=== PATIENT | female | born 1955 | race American Indian/Alaskan Native ===

== ENCOUNTER 2017-06-15 18:06 | Observation (INO) | payer MEDICARE, OTHER ==
[2017-06-15 18:06] VITALS: BMI 42.5
[2017-06-15 18:38] LABS: BASO # 0.02 K/mm3 (0.0-2.0); BASO % 0.2 % (0.0-3.0); EOS # 0.3 (0.0-0.7); EOS % 2.9 % (1.5-5.0); GRAN # 4.62 (1.4-6.5); HEMATOCRIT 37.4 % (36.0-48.0); LYMPH # 4.5 (1.2-3.4); LYMPH % 44.7 % (22.0-35.0); MEAN CELL VOLUME 84.6 fl (80.0-105.0); MEAN CORPUSCULAR HEMOGLOBIN 27.4 pg (25.0-35.0); MEAN CORPUSCULAR HGB CONC 32.4 g/dl (31.0-37.0); MEAN PLATELET VOLUME 11.9 fl (7.0-11.0); MONO # 0.6 (0.1-0.6); MONO % 6.2 % (1.0-6.0); RED CELL DISTRIBUTION WIDTH 15.8 % (11.5-14.5)
--- NOTE | 2017-06-15 18:44 | ED PDOC ---
Arrival/HPI - General Chief Complaint: Chest Pain Time Seen by Provider: 06/15/17 18:08 Historian: Patient - History of Present Illness Narrative History of Present Illness (Text): 06/15/17 18:41 61yr old with hx of HTN and DM presents today with 1 week history of continued chest pain. pt describes the pain as a pressure, heaviness and tightness that radiates across the chest into the bilateral shoulders. pt states the pain has been going on for about a week with nausea. no vomiting/diarrhea. no fever/ chills. states she has had an occasional dry cough for weeks. denies cp or sob. no dizziness. + weakness. denies appetite changes. pt states her blood sugars have been good lately. pt states she spoke with PMD yesterday and was told to come to the ER for evaluation. pt denies leg pain. denies abdominal pain. denies back pain. no other complaints. Time/Duration: 1 week Symptom Onset: Gradual Symptom Course: Worsening Quality: Pressure, Tightness Severity Level: 5 Past Medical History - Provider Review Nursing Documentation Reviewed: Yes - Travel History Have you recently traveled outside [place] w/in the past 3 mons?: No - Infectious Disease Hx of Infectious Diseases: None - Tetanus Immunization Tetanus Immunization: Unknown - Cardiac Hx Cardiac Disorders: Yes Hx Hypertension: Yes - Pulmonary Hx Respiratory Disorders: No Hx Asthma: Yes - Neurological Hx Neurological Disorder: No - HEENT Hx HEENT Disorder: No - Renal Hx Renal Disorder: No - Endocrine/Metabolic Hx Endocrine Disorders: Yes Hx Diabetes Mellitus Type 1: Yes - Hematological/Oncological Hx Blood Disorders: No - Integumentary Hx Dermatological Disorder: No - Musculoskeletal/Rheumatological Hx Arthritis: Yes Hx Falls: No Hx Rheumatoid Arthritis: Yes - Gastrointestinal Hx Gastrointestinal Disorders: No - Genitourinary/Gynecological Hx Genitourinary Disorders: No - Psychiatric Hx Psychophysiologic Disorder: No Hx Substance Use: No - Surgical History Hx Hysterectomy: Yes Other/Comment: back sx - Anesthesia Hx Anesthesia: Yes Hx Anesthesia Reactions: No Hx Malignant Hyperthermia: No - Suicidal Assessment Feels Threatened In Home Enviroment: No Family/Social History - Physician Review Nursing Documentation Reviewed: Yes Family/Social History: Unknown Family HX Smoking Status: Never Smoked Hx Alcohol Use: No Hx Substance Use: No Hx Substance Use Treatment: No Allergies/Home Meds Allergies/Adverse Reactions: Allergies No Known Allergies Allergy (Verified 02/02/15 19:05) Home Medications: Home Meds Medication Instructions Recorded Confirmed Albuterol Sulfate [Albuterol 3 ml IH PRN PRN 06/15/17 06/15/17 Sulfate] Albuterol/Ipratropium [Duoneb 3 3 ml IH QID 06/15/17 06/15/17 mg/0.5 mg (3 ml) UD] Carvedilol [Coreg] 12.5 mg PO BID 06/15/17 06/15/17 Celecoxib [celeBREX] 200 mg PO DAILY 06/15/17 06/15/17 Febuxostat [Uloric] 40 mg PO DAILY 06/15/17 06/15/17 Montelukast [Singulair] 10 mg PO DAILY 06/15/17 06/15/17 Ranolazine [Ranexa] 500 mg PO TID 06/15/17 06/15/17 Rosuvastatin Calcium [Crestor] 40 mg PO HS 06/15/17 06/15/17 Valsartan [Diovan] 0 mg PO DAILY 06/15/17 06/15/17 Zolpidem [Ambien] 10 mg PO HS PRN 06/15/17 06/15/17 metFORMIN [glucOPHAGE] 500 mg PO DAILY 06/15/17 06/15/17 Review of Systems - Review of Systems Constitutional: absent: Fatigue, Fevers Respiratory: Cough (occasional dry cough). absent: SOB, Sputum, Wheezing Cardiovascular: Chest Pain. absent: Palpitations, Orthopnea, Syncope Gastrointestinal: Nausea. absent: Abdominal Pain, Constipation, Diarrhea, Vomiting Genitourinary Female: absent: Dysuria Musculoskeletal: absent: Arthralgias Skin: absent: Rash, Pruritis Neurological: absent: Headache, Dizziness Psychiatric: absent: Anxiety, Depression, Suicidal Ideation Physical Exam Vital Signs Reviewed: Yes Vital Signs Temp Pulse Resp BP Pulse Ox 06/15/17 18:06 98.2 F 70 18 117/74 100 Temperature: Afebrile Blood Pressure: Normal Pulse: Regular Respiratory Rate: Normal Appearance: Positive for: Well-Appearing, Non-Toxic, Comfortable Pain Distress: None Mental Status: Positive for: Alert and Oriented X 3 - Systems Exam Head: Present: Atraumatic Mouth: Present: Moist Mucous Membranes Neck: Present: Normal Range of Motion Respiratory/Chest: Present: Clear to Auscultation, Good Air Exchange. No: Respiratory Distress, Accessory Muscle Use Cardiovascular: Present: Regular Rate and Rhythm, Normal S1, S2. No: Murmurs Abdomen: Present: Normal Bowel Sounds. No: Tenderness, Distention, Peritoneal Signs, Rebound, Guarding Back: Present: Normal Inspection. No: CVA Tenderness, Midline Tenderness, Paraspinal Tenderness Upper Extremity: Present: Normal ROM Lower Extremity: Present: Normal ROM. No: Edema, CALF TENDERNESS, Tenderness Neurological: Present: GCS=15, Speech Normal Skin: Present: Warm, Dry, Normal Color. No: Rashes Psychiatric: Present: Alert, Oriented x 3 Medical Decision Making ED Course and Treatment: 06/15/17 18:48 pt with chest pain ; vitals stable. pt non toxic well appearing; no distress. cbc; wnl cmp; wnl trop: wnl bnp; wnl ekg; normal sinus rhythm at [address] elevations normal axis normal intervals QTC 418 cxr: wnl d-dimer <200 asa PO pt reassessment; pt non toxic well appearing; no distress. stable vitals. 61yr old diabetic female with hx of HTN; with worsening chest pain. case discussed with Dr. Marquez; will Admit observational status to Tele for chest pain case discussed with resident who will see patient at beside. all aspects of this case were discussed the attending of record. impression; chest pain Admit observational status to tele; Dr. marquez - Lab Interpretations Lab Results: 06/15/17 18:30 06/15/17 18:30 Lab Results 06/15/17 20:12: D-Dimer, Quantitative < 200 06/15/17 19:49: Urine Color Yellow, Urine Appearance Clear, Urine pH 6.0, Ur Specific [place] >= 1.030, Urine Protein Negative, Urine Glucose (UA) Negative, Urine Ketones Trace H, Urine Blood Negative, Urine Nitrate Negative, Urine Bilirubin Negative, Urine Urobilinogen 0.2, Ur Leukocyte Esterase Trace H, Urine RBC 0 - 2, Urine WBC 2 - 5, Ur Epithelial Cells 1 - 3, Urine Bacteria Small 06/15/17 18:30: Triglycerides 216 H, Cholesterol 202 H, LDL Cholesterol Direct 107, HDL Cholesterol 55 06/15/17 18:30: NT-Pro-B Natriuret Pep 29.8, Lipase 69 06/15/17 18:30: PT 11.6, INR 1.06, APTT 37.8 H 06/15/17 18:30: Sodium 142, Potassium 4.2, Chloride 104, Carbon Dioxide 32, Anion Gap 11, BUN 19, Creatinine 0.9, Est GFR ( Amer) > 60, Est GFR (Non- Af Amer) > 60, Random Glucose 92, Calcium 10.8 H, Total Bilirubin 0.6, AST 20, ALT 30, Alkaline Phosphatase 66, Lactate Dehydrogenase 367, Total Creatine Kinase 141, Troponin I < 0.01, Total Protein 8.0, Albumin 4.1, Globulin 3.9, Albumin/Globulin Ratio 1.1 06/15/17 18:30: WBC 10.0, RBC 4.42, Hgb 12.1, Hct 37.4, MCV 84.6, MCH 27.4, MCHC 32.4, RDW 15.8 H, Plt Count 266, MPV 11.9 H, Gran % 46.0 L, Lymph % (Auto) 44.7 H, [place] % (Auto) 6.2 H, Eos % (Auto) 2.9, Baso % (Auto) 0.2, Gran # 4.62, Lymph # 4.5 H, [place] # 0.6, Eos # 0.3, Baso # 0.02 - RAD Interpretation Radiology Orders: 06/15/17 18:26 CHEST PORTABLE [RAD] Stat - Medication Orders Current Medication Orders: Albuterol/Ipratropium (Duoneb 3 Mg/0.5 Mg (3 Ml) Ud) 3 ml IH [id number] PRN PRN Reason: Shortness of Breath Aspirin (Ecotrin) 81 mg PO DAILY [facility] Carvedilol (Coreg) 12.5 mg PO BID [facility] Clopidogrel Bisulfate (Plavix) 75 mg PO 1200 [facility] Enoxaparin Sodium (Lovenox) 40 mg SC DAILY [facility] PRN Reason: Protocol Hydralazine HCl (Apresoline) 10 mg IVP Q6 PRN PRN Reason: Systolic Blood Pressure Insulin Human Lispro (Humalog Med) 0 units SC ACHS [facility] PRN Reason: Protocol Montelukast Sodium (Singulair) 10 mg PO HS [facility] Home Med - Celecoxib ([Celebrex] 200 Mg)) 200 mg PO DAILY [facility] Home Med - Rosuvastatin Calcium [Crestor] 40 Mg 40 mg PO HS [facility] Pantoprazole Sodium (Protonix Inj) 40 mg IVP DAILY [facility] Discontinued Medications Aspirin (Aspirin) 325 mg PO STAT [facility] Stop: 06/15/17 19:29 Last Admin: 06/15/17 19:50 Dose: 325 mg Carvedilol (Coreg) 12.5 mg PO BID [facility] Clopidogrel Bisulfate (Plavix) 75 mg PO STAT [facility] Stop: 06/15/17 21:02 Last Admin: 06/15/17 22:19 Dose: Disposition/Present on Arrival - Present on Arrival Any Indicators Present on Arrival: No History of DVT/PE: No History of Uncontrolled Diabetes: No Urinary Catheter: No History of Decub. Ulcer: No History Surgical Site Infection Following: None - Disposition Have Diagnosis and Disposition been Completed?: Yes Diagnosis: Chest pain Disposition: HOSPITALIZED Disposition Time: 19:42 Patient Plan: Observation Patient Problems: Current Active Problems Problem Status Onset Chest pain Acute Condition: FAIR
[2017-06-15 18:48] LABS: ALB/GLOB RATIO 1.1 (1.1-1.8); ALKALINE PHOSPHATASE 66 U/L (38-126); ALT/SGPT 30 U/L (7-56); AST/SGOT 20 U/L (14-36); BILIRUBIN,TOTAL 0.6 mg/dL (0.2-1.3); BLOOD UREA NITROGEN 19 mg/dL (7-21); CALCIUM 10.8 mg/dL (8.4-10.5); CARBON DIOXIDE 32 mmol/L (21-33); CHLORIDE 104 mmol/L (98-107); GFR AFRICAN-AMERICAN > 60; GLUCOSE,RANDOM 92 mg/dL (70-110); POTASSIUM 4.2 mmol/L (3.6-5.0); SODIUM 142 mmol/L (132-148)
[2017-06-15 18:52] LABS: INR 1.06 (0.93-1.08); PARTIAL THROMBOPLASTIN TIME 37.8 Seconds (25.1-36.5)
[2017-06-15 18:59] LABS: TROPONIN I < 0.01 ng/mL
[2017-06-15 19:54] LABS: URINE BILIRUBIN NEGATIVE (NEGATIVE); URINE BLOOD NEGATIVE (NEGATIVE); URINE GLUCOSE (UA) NEGATIVE (NEGATIVE); URINE KETONE TRACE mg/dL (NEGATIVE); URINE LEUKOCYTE ESTERASE TRACE Leu/uL (NEGATIVE); URINE PROTEIN NEGATIVE mg/dL (<30 mg/dL); URINE UROBILINOGEN 0.2 E.U./dL (<1 E.U./dL)
[2017-06-15 19:56] LABS: URINE APPEARANCE CLEAR (CLEAR); URINE COLOR YELLOW (YELLOW)
[2017-06-15 20:06] LABS: URINE BACTERIA SMALL (NEG); URINE RBC 0 - 2 /hpf (0-2)
--- NOTE | 2017-06-15 20:19 | CP.PCM.HP ---
History of Present Illness - History of Present Illness History of Present Illness: CC: chest pain Subjective: HPI: Patient is a 61 year old female with past medical history of HTN, DM, RA, HPL, and asthma who presents to the emergency department for evaluation and treatment of chest pain which began 1 week ago without a provoking event. The pain originates in the left sided parasternal pressure and intermittently radiates to the neck with spontaneous resolution without any acute intervention. At baseline the pain is described as a heaviness but can become sharp with radiation across the chest into the bilateral shoulders. Patient states she spoke with PMD yesterday and was told to come to the ER for evaluation. Admits to SABA. Denies recent travel and sick contacts. Patient denies intractable headache, fever, chills, dizziness, blurry vision, ringing in the ears, abdominal pain, nausea, vomiting, diarrhea, constipation, and urinary symptoms. ROS: 12 point review of systems negative except as indicated in HPI PMHx: HTN, DM, RA, HPL, asthma PSHx: lumbar fusion Family Hx: mother- brain aneurysm Social Hx: denies ETOH use, tobacco use, illicit drug use Medications: Please see medication reconciliation PMD: Dr. Watkins Physical Examination: - Constitutional Appears: Non-toxic, No Acute Distress - Head Exam Head Exam: atraumatic, normocephalic - Eye Exam Eye Exam: Normal appearance, PERRL. absent: Scleral icterus - ENT Exam ENT Exam: Mucous Membranes Moist - Neck Exam Neck exam: Normal Inspection - Respiratory Exam Respiratory Exam: Normal Breathing Pattern - Cardiovascular Exam Cardiovascular Exam: RRR, +S1, +S2. absent: Gallop, JVD - GI/Abdominal Exam GI & Abdominal Exam: Normal Bowel Sounds, absent: Distended, Guarding, Pulsatile Mass, Rebound, Rigid - Extremities Exam Extremities exam: Negative for: calf tenderness - Neurological Exam Neurological exam: Patient is awake, alert, responds to verbal stimuli, answers questions appropriately, follows commands, and moves extremities past midline - Psychiatric Exam Psychiatric exam: Normal Affect, Normal Mood - Skin Skin Exam: warm and dry Assessment and Plan: Patient is a 61 year old female with past medical history of HTN and DM who is being admitted for evaluation and treatment of chest pain. Chest Pain - rule out ACS - EKG reviewed and appreciated - NSR, HR 68 bpm, QTc 418; no defining ST T wave changes - troponins q4 hours x 3, first troponins negative - lipid profile and A1C pending - aspirin 81 mg (325mg given in ED) and low dose plavix as per attending - ECHO pending - cardiology consulted- appreciate recommendations Hx of Htn - c/w home carvedilol with holding parameters - hydralazine 5mg IV q6 prn SBP > 180, holding parameters- do not administer if HR is > 100 bpm Hx of Hyperlipidemia - c/w statin - lipid profile pending Hx of Diabetes - hold home diabetic medications - fingersticks ACHS - insulin sliding scale- lispro medium - resume diet as carb consistent Hx of Asthma - duonebs q6 prn sob - continue home singular Hx of Rhumatoid Arthritis - c/w celecoxib - esr and crp pending Prophylaxis - DVT ppx- lovenox as per richar score - GI ppx- protonix Patient case discussed with and plan approved by attending physician. 06/15/17 20:12 Present on Admission - Present on Admission Any Indicators Present on Admission: No Past Patient History - Infectious Disease Hx of Infectious Diseases: None - Tetanus Immunizations Tetanus Immunization: Unknown - Past Social History Smoking Status: Never Smoked - CARDIAC Hx Cardiac Disorders: Yes Hx Hypertension: Yes - PULMONARY Hx Respiratory Disorders: No Hx Asthma: Yes - NEUROLOGICAL Hx Neurological Disorder: No - HEENT Hx HEENT Problems: No - RENAL Hx Chronic Kidney Disease: No - ENDOCRINE/METABOLIC Hx Endocrine Disorders: Yes Hx Diabetes Mellitus Type 1: Yes - HEMATOLOGICAL/ONCOLOGICAL Hx Blood Disorders: No - INTEGUMENTARY Hx Dermatological Problems: No - MUSCULOSKELETAL/RHEUMATOLOGICAL Hx Arthritis: Yes Hx Falls: No Hx Rheumatoid Arthritis: Yes - GASTROINTESTINAL Hx Gastrointestinal Disorders: No - GENITOURINARY/GYNECOLOGICAL Hx Genitourinary Disorders: No - PSYCHIATRIC Hx Psychophysiologic Disorder: No Hx Substance Use: No - SURGICAL HISTORY Hx Hysterectomy: Yes Other/Comment: back sx - ANESTHESIA Hx Anesthesia: Yes Hx Anesthesia Reactions: No Hx Malignant Hyperthermia: No Meds Allergies/Adverse Reactions: Allergies Allergy/AdvReac Type Severity Reaction Status Date / Time No Known Allergies Allergy Verified 02/02/15 19:05 Results - Vital Signs Recent Vital Signs: Last Vital Signs Temp 98.2 F 06/15/17 18:06 Pulse 70 06/15/17 18:06 Resp 18 06/15/17 18:06 BP 117/74 06/15/17 18:06 Pulse Ox 100 06/15/17 18:06 - Labs Result Diagrams: 06/15/17 18:30 06/15/17 18:30 Labs: Laboratory Results - last 24 hr 06/15/17 06/15/17 06/15/17 18:30 18:30 18:30 WBC 10.0 RBC 4.42 Hgb 12.1 Hct 37.4 MCV 84.6 MCH 27.4 MCHC 32.4 RDW 15.8 H Plt Count 266 MPV 11.9 H Gran % 46.0 L Lymph % (Auto) 44.7 H [place] % (Auto) 6.2 H Eos % (Auto) 2.9 Baso % (Auto) 0.2 Gran # 4.62 Lymph # 4.5 H [place] # 0.6 Eos # 0.3 Baso # 0.02 PT 11.6 INR 1.06 APTT 37.8 H Sodium 142 Potassium 4.2 Chloride 104 Carbon Dioxide 32 Anion Gap 11 BUN 19 Creatinine 0.9 Est GFR ( Amer) > 60 Est GFR (Non-Af Amer) > 60 Random Glucose 92 Calcium 10.8 H Total Bilirubin 0.6 AST 20 ALT 30 Alkaline Phosphatase 66 Lactate Dehydrogenase 367 Total Creatine Kinase 141 Troponin I < 0.01 NT-Pro-B Natriuret Pep Total Protein 8.0 Albumin 4.1 Globulin 3.9 Albumin/Globulin Ratio 1.1 Lipase Urine Color Urine Appearance Urine pH Ur Specific [place] Urine Protein Urine Glucose (UA) Urine Ketones Urine Blood Urine Nitrate Urine Bilirubin Urine Urobilinogen Ur Leukocyte Esterase Urine RBC Urine WBC Ur Epithelial Cells Urine Bacteria 06/15/17 06/15/17 18:30 19:49 WBC RBC Hgb Hct MCV MCH MCHC RDW Plt Count MPV Gran % Lymph % (Auto) [place] % (Auto) Eos % (Auto) Baso % (Auto) Gran # Lymph # [place] # Eos # Baso # PT INR APTT Sodium Potassium Chloride Carbon Dioxide Anion Gap BUN Creatinine Est GFR ( Amer) Est GFR (Non-Af Amer) Random Glucose Calcium Total Bilirubin AST ALT Alkaline Phosphatase Lactate Dehydrogenase Total Creatine Kinase Troponin I NT-Pro-B Natriuret Pep 29.8 Total Protein Albumin Globulin Albumin/Globulin Ratio Lipase 69 Urine Color Yellow Urine Appearance Clear Urine pH 6.0 Ur Specific [place] >= 1.030 Urine Protein Negative Urine Glucose (UA) Negative Urine Ketones Trace H Urine Blood Negative Urine Nitrate Negative Urine Bilirubin Negative Urine Urobilinogen 0.2 Ur Leukocyte Esterase Trace H Urine RBC 0 - 2 Urine WBC 2 - 5 Ur Epithelial Cells 1 - 3 Urine Bacteria Small
[2017-06-15] MEDS ORDERED: Albuterol-Ipratrop 3 mg / 0.5 (3 ml) UD IH PRN (20:44)
[2017-06-15 21:12] LABS: CHOLESTEROL 202 mg/dL (130-200)
[2017-06-15] MEDS ORDERED: ROSUVASTATIN CALCIUM 40 MG PO SCH (22:00)
[2017-06-15] MEDS: Insulin Lispro (humaLOG) MEDIUM Coverage SC SCH (22:45)
[2017-06-16 07:04] LABS: BASO # 0.01 K/mm3 (0.0-2.0); BASO % 0.1 % (0.0-3.0); EOS # 0.3 (0.0-0.7); EOS % 3.5 % (1.5-5.0); GRAN # 3.01 (1.4-6.5); GRAN % 40.9 % (50.0-68.0); HEMATOCRIT 35.6 % (36.0-48.0); LYMPH # 3.6 (1.2-3.4); LYMPH % 48.3 % (22.0-35.0); MEAN CELL VOLUME 83.4 fl (80.0-105.0); MEAN CORPUSCULAR HEMOGLOBIN 26.7 pg (25.0-35.0); MEAN PLATELET VOLUME 11.5 fl (7.0-11.0); MONO # 0.5 (0.1-0.6); MONO % 7.2 % (1.0-6.0); RED CELL DISTRIBUTION WIDTH 15.8 % (11.5-14.5); WHITE BLOOD COUNT 7.4 10^3/ul (4.5-11.0)
[2017-06-16 07:32] LABS: ALB/GLOB RATIO 1.1 (1.1-1.8); ALKALINE PHOSPHATASE 61 U/L (38-126); ALT/SGPT 25 U/L (7-56); AST/SGOT 18 U/L (14-36); BILIRUBIN,TOTAL 0.7 mg/dL (0.2-1.3); BLOOD UREA NITROGEN 15 mg/dL (7-21); CALCIUM 9.9 mg/dL (8.4-10.5); CARBON DIOXIDE 30 mmol/L (21-33); CHLORIDE 104 mmol/L (98-107); GFR AFRICAN-AMERICAN > 60; GLUCOSE,RANDOM 99 mg/dL (70-110); POTASSIUM 3.6 mmol/L (3.6-5.0); SODIUM 141 mmol/L (132-148); TOTAL PROTEIN 7.1 g/dL (5.8-8.3)
[2017-06-16] MEDS: Insulin Lispro (humaLOG) MEDIUM Coverage SC SCH ×4 (07:48→22:37)
--- NOTE | 2017-06-16 08:58 | RAD ---
HISTORY: chest pain COMPARISON: 11/01/2015 FINDINGS: LUNGS: No active pulmonary disease. PLEURA: No significant pleural effusion identified, no pneumothorax apparent. CARDIOVASCULAR: Normal. OSSEOUS STRUCTURES: No significant abnormalities. VISUALIZED UPPER ABDOMEN: Normal. OTHER FINDINGS: None. IMPRESSION: No active disease.
[2017-06-16] MEDS: Enoxaparin 40 mg Syringe SC SCH (09:31)
[2017-06-16] MEDS: CELECOXIB 200 MG PO SCH (09:37)
--- NOTE | 2017-06-16 10:25 | HP ---
HISTORY OF PRESENT ILLNESS: The patient is a 61-year-old female who was admitted to the hospital for evaluation of chest pain. She was seen in the emergency room with chest pain that was progressing for 1 week. The patient also has history of feeling uncomfortable and weak and there was no improvement with chest pain in spite of taking all her medications. The patient denies any history of diaphoresis. No history of radiation or pain. The pain is confined to epigastric area and the lower chest. PAST MEDICAL HISTORY: Significant that she has history of hypertension. She has history of coronary artery disease, angiogram had been done 2 years ago. The patient denies that she has any stents at this time. She also has history of asthma. The patient has history of diabetes mellitus. The patient history of gastritis and peptic ulcer disease. The patient has history of rheumatoid arthritis and gout according to history. The patient has had surgery hysterectomy. The patient has had surgery on the lower lumbar spine for her severe back pain secondary to trauma. The patient has no other surgical procedures so far at this time. PHYSICAL EXAMINATION: GENERAL: She is evaluated. She is reasonably comfortable and pleasant. VITAL SIGNS: Shows that the pulse is 65 and blood pressure 116/66. The patient has O2 saturation of 100%, respirations 20, and temperature 98.5. HEENT: The patient's head is normocephalic. NECK: The thyroid is not enlarged clinically. There is no lymphadenopathy in the neck. JVP is flat. The carotid pulses are present bilaterally. HEART: NSR. S1 and S2 present. No murmurs. No pericardial rubs. LUNGS: Trachea is central. Breath sounds are vesicular. No adventitious sounds are heard bilaterally. ABDOMEN: Soft. Liver and spleen not palpable. The patient has mild distention. No epigastric rebound tenderness is noted. CENTRAL NERVOUS SYSTEM: The patient is conscious, rational, and oriented. Cranial nerves are intact II through XII. The patient's motor and sensory functions are within normal limits at this time. LABORATORY DATA: The patient's blood work done in the hospital emergency room, the white cell count was 7,400 and hemoglobin was 11.4. The patient's differential within normal range, excepting that the patient has a higher lymphocytic count compared to adenocytic count. The patient's sedimentation rate is 38. The patient's urinalysis shows white cells 2-5 with specific gravity of 1.030. There is no protein and no sugar in the urine. The patient's chemistry, the sodium is 141. The patient's GFR is within normal limits. Liver functions are within normal limits. The patient's BNP is within normal limits. Triglycerides 216, cholesterol is 202. The patient's chest x-ray is clear. EKG showed no specific ST-T wave changes consistent with coronary artery disease. ASSESSMENT/PLAN:The patient is admitted to Telemetry. All her medications are listed. The patient is on hydralazine 10 mg q.6 hours p.r.n. for systolic elevation of blood pressure. The patient is on Coreg 12.5 mg b.i.d. The patient is DuoNeb q.6 hours p.r.n. for wheezing and shortness of breath. Aspirin 81 mg daily. The patient is on Celebrex 200 mg daily. The patient is on Crestor 40 mg daily. Insulin coverage with meals. The patient is on Lovenox for prophylaxis. The patient is on Plavix 75 mg daily, pantoprazole 40 mg daily, and Singulair 10 mg daily. The patient is on placed on aspirin 81 mg a day as mentioned. The patient is on 2 g sodium and heart healthy diet. Dr. Montenegro is her information systems security analyst, he has been consulted to see the patient and will follow up. Stacy Hurd MD MTDD
--- NOTE | 2017-06-16 14:07 | CARD ---
APPROVED REPORT EXAM: Two-dimensional and M-mode echocardiogram with Doppler and color Doppler. INDICATION ARRYTHMIA 2D DIMENSIONS Left Atrium (2D)4.1 (1.6-4.0cm)IVSd1.2 (0.7-1.1cm) LVDd5.1 (3.9-5.9cm)PWd1.3 (0.7-1.1cm) LVDs4.2 (2.5-4.0cm)FS (%) 18.1 % LVEF (%)37.4 (>50%) M-Mode DIMENSIONS Aortic Root2.90 (2.2-3.7cm)Aortic Cusp Exc.1.50 (1.5-2.0cm) Aortic Valve AoV Peak Yyapgxxe849.0cm/Leonor Peak GR.14mmHg Mitral Valve MV E Wyeetyre69.2cm/sMV A Mazkvhsi73.5cm/sE/A ratio0.8 TDI Lateral E' Peak V7.21cm/sMedial E' Peak V4.78cm/sE/Lateral E'8.1 E/Medial E'12.2 Pulmonary Valve PV Peak Gpwwngfv59.1cm/sPV Peak Grad.2mmHg Tricuspid Valve TR Peak [id number]/sRAP [id number] Peak Gr.25mmHg [id number] LEFT VENTRICLE The left ventricle is normal size. There is borderline concentric left ventricular hypertrophy. Left ventricle is moderately to severely impaired. There is global hypokinesis of the left ventricle. Transmitral Doppler flow pattern is Grade I-abnormal relaxation pattern. RIGHT VENTRICLE The right ventricle is normal size. There is normal right ventricular wall thickness. Systolic function is mildly reduced. ATRIA The left atrium is borderline dilated. The right atrium size is normal. AORTIC VALVE The aortic valve is normal in structure. No aortic regurgitation is present. There is no aortic valvular stenosis. MITRAL VALVE The mitral valve is normal in structure. There is no mitral valve regurgitation noted. TRICUSPID VALVE There is mild pulmonary hypertension. GREAT VESSELS The aortic root is normal in size. PERICARDIAL EFFUSION There is no pericardial effusion. <Conclusion> The left ventricle is normal size. There is borderline concentric left ventricular hypertrophy. Left ventricle is moderately to severely impaired. There is global hypokinesis of the left ventricle. Transmitral Doppler flow pattern is Grade I-abnormal relaxation pattern. There is mild pulmonary hypertension.
[2017-06-16] MEDS ORDERED: Oxycodone/Acetaminophen 5/325 mg Tab PO PRN (15:16)
--- NOTE | 2017-06-16 18:20 | CARD ---
APPROVED REPORT EKG Measurement Heart [id number] <Conclusion> Sinus rhythm with 1st degree AV block Nonspecific T wave abnormality Abnormal ECG
--- NOTE | 2017-06-16 18:27 | CARD ---
APPROVED REPORT EKG Measurement Heart [id number] <Conclusion> Normal sinus rhythm Nonspecific T wave abnormality Abnormal ECG
--- NOTE | 2017-06-16 21:32 | CON ---
CARDIOLOGY CONSULTATION DATE: 06/16/2017 HISTORY: The patient is a 61-year-old woman, who presents with epigastric discomfort with radiation to the right side as well as left side. The pain is constant and not exacerbated by exertion. In addition, there have been episodes of dysphagia as well. PAST MEDICAL HISTORY: The patient's past medical history is free of cardiac history. She does suffer from hypertension, hypercholesterolemia, and diabetes mellitus. The patient is also overweight. SOCIAL HISTORY: The patient does not smoke. REVIEW OF SYSTEMS: A 14-point review of systems was reviewed in detail. There are no other cardiac symptomatology noted. PHYSICAL EXAM: VITAL SIGNS: Blood pressure 115/66, heart rate in the 60s. NECK: Negative JVD. LUNGS: Without rales. HEART: S1, S2. EXTREMITIES: Without edema. EKG shows normal sinus rhythm with nonspecific ST-T changes. LABORATORY: Reveals troponins that are negative x3. Hemoglobin is 11.4. IMPRESSION: 1. Chest pain which is more likely due to gastrointestinal symptomatology. 2. Multiple cardiac risk factors including. 3. Diabetes mellitus. 4. Hypertension. 5. Hypercholesterolemia. 6. Obesity. Given these findings, we will give her a trial of IV Protonix. I have discussed with the patient about need for a stress test given her high probability for coronary artery disease. Yonas Montenegro MD
[2017-06-17 00:47] VITALS: RESP 20; O2SAT 99
[2017-06-17] MEDS ORDERED: Pantoprazole 40 mg EC Tab PO SCH (06:00)
[2017-06-17 06:11] VITALS: PULSE 68
[2017-06-17 06:12] VITALS: TEMP 97.8
[2017-06-17] MEDS: Insulin Lispro (humaLOG) MEDIUM Coverage SC SCH ×2 (08:00→11:30)
[2017-06-17] MEDS: CELECOXIB 200 MG PO SCH (10:13)
[2017-06-17] MEDS: Enoxaparin 40 mg Syringe SC SCH (10:13)
[2017-06-17 10:17] VITALS: BP 102/63
--- NOTE | 2017-06-18 02:54 | DS ---
LOCATION: The patient is seen in room 270, bed #2. HISTORY OF PRESENT ILLNESS: The patient is seen lying in the bed. The patient is comfortable. The patient does not appear to be in any distress. Telemetry monitoring shows sinus rhythm and heart rate in 60s, 70s. PHYSICAL EXAMINATION: VITAL SIGNS: T-max 98.1, blood pressure 126/70, respirations 20, O2 sat 99%. HEENT: Head: Normocephalic, atraumatic. HEENT examination shows pink conjunctivae. Anicteric sclerae. No oropharyngeal lesion. No facial asymmetry. NECK: No neck rigidity. No carotid bruit, no lymphadenopathy. CHEST: Kyphosis. LUNGS: Shows no wheezing, crackles or rales. CARDIOVASCULAR: Shows S1, S2, regular rhythm. Questionable soft systolic murmur left sternal border, right second intercostal space. ABDOMEN: Soft, obese. Positive bowel sounds. No costovertebral angle tenderness. GENITALIA: Female. RECTAL: Deferred. EXTREMITIES: Shows no pitting edema, no calf tenderness. No Homans' sign. VASCULAR: Palpable pulses. No clubbing, no sinuses noted. MUSCULOSKELETAL: Shows a body mass index of 39. NEUROLOGIC: Cranial nerves II-XII intact. Gait examination is not tested. PSYCHIATRIC: Negative. DIAGNOSTICS: From 06/15/2017 and 06/16/2017 noted. The patient's chest wall examination also shows positive palpable rib cage, sternal tenderness on palpation. FINAL IMPRESSION, PLAN AND DISCHARGE DIAGNOSES: 1. Chest pain, etiology undetermined. 2. Questionable musculoskeletal chest pain with reproducible palpable chest wall and sternal tenderness. 3. Questionable gastroesophageal reflux. 4. Hypertension. 5. Morbid obesity with elevated body mass index of 39. 6. Mild normocytic anemia. 7. Elevated erythrocyte sedimentation rate. 8. Non-insulin requiring type 2 diabetes mellitus. 9. Type 2 diabetes mellitus with well-controlled type 2 diabetes mellitus with hemoglobin A1c 5.9. 10. Elevated C-reactive protein of greater than 14. 11. Hypertriglyceridemia, hypercholesteremia with elevated LDL. 12. Ketonuria. 13. Nonspecific T-wave abnormalities. 14. Obesity. 15. Questionable cardiomyopathy with left ventricular ejection fraction of 37%. 16. Concentric left ventricular hypertrophy with moderate to severely impaired left ventricular systolic function and global left ventricular hypokinesis and grade 1 abnormal relaxation pattern. 17. Mildly reduced right ventricular systolic function. 18. Mild pulmonary arterial hypertension with right ventricular systolic pressure of 35 mmHg. 19. History of asthma. 20. History of emphysema. 21. History of degenerative joint disease of the spine and knees. 22. History of dyslipidemia. PLAN: At this time, the patient has been cleared by Cardiology for discharge. The patient's will be discharged home. The patient is scheduled for outpatient stress test on 06/21/2017. MEDICATIONS: The patient's revised discharge medications are as follows: The patient is to resume on albuterol HFA metered-dose inhaler, DuoNeb nebulizer four times a day, aspirin 81 mg daily, Coreg 12.5 mg twice a day, Celebrex 200 mg daily, Uloric 40 mg daily. The patient is started on Lasix 40 mg p.o. daily, metformin 500 mg daily, Singulair 10 mg daily, Protonix 40 mg daily, Ranexa 500 mg twice a day, Crestor 40 mg daily, Ambien 10 mg at bedtime p.r.n., The patient's Diovan was stopped at this time. The patient is to follow up with Dr. Yonas Montenegro for stress test on 06/21/2017. The patient was extensively explained about the details of her medical condition during her hospitalization. All questions concerned were answered. ADDENDUM: The patient is also to resume at home Percocet 5/325 which has been prescribed already through the office. The patient will resume aspirin 81 mg p.o. daily, albuterol HFA DuoNeb nebulizer every 6 hours, Ambien 10 mg at bedtime p.r.n., Celebrex 200 mg daily, Coreg 12.5 twice a day, Crestor 40 mg daily, Ecotrin 81 mg daily, metformin 500 mg daily, Lasix 40 mg daily, Protonix 40 mg daily, Ranexa 500 twice a day, Singulair 10 mg daily, Uloric 40 mg daily. Time spent in the entire discharge process more than 45 minutes. Dictated and electronically signed, not read. Shaun Watkins MD
--- NOTE | 2017-06-19 09:16 | PN ---
DATE: 06/16/2017 ADDENDUM CARDIOLOGY FOLLOWUP PLAN: The patient's symptoms are much improved. She is ambulating without symptoms. Given these findings, the patient can be discharged today. Follow up stress test has been arranged for next week. Yonas Montenegro MD
== END 2017-06-17 12:41 | disposition home or self-care (01) ==
LOC: ED 18:06 → ERH 20:38 → 2RSO 22:13
PROVIDERS: ADMIT Internal Medicine; ATTEND Internal Medicine
DX: R07.9 Chest pain, unspecified (principal); D64.9 Anemia, unspecified; E10.9 Type 1 diabetes mellitus without complications; E66.01 Morbid (severe) obesity due to excess calories; E78.1 Pure hyperglyceridemia; E78.00 Pure hypercholesterolemia, unspecified; E78.5 Hyperlipidemia, unspecified; I10 Essential (primary) hypertension; I25.10 Atherosclerotic heart disease of native coronary artery without angina pectoris; I27.21 Secondary pulmonary arterial hypertension; J43.9 Emphysema, unspecified; J45.909 Unspecified asthma, uncomplicated; M06.9 Rheumatoid arthritis, unspecified; M10.9 Gout, unspecified; M17.0 Bilateral primary osteoarthritis of knee; M47.9 Spondylosis, unspecified; R13.10 Dysphagia, unspecified; Z68.39 Body mass index [BMI] 39.0-39.9, adult; Z79.02 Long term (current) use of antithrombotics/antiplatelets; Z79.82 Long term (current) use of aspirin; Z79.899 Other long term (current) drug therapy; Z87.11 Personal history of peptic ulcer disease; Z90.710 Acquired absence of both cervix and uterus
CPT/HCPCS: 36415; 71010; 80053; 80061; 81001; 82550; 82948; 83036; 83615; 83690; 83880; 84484; 85025; 85378; 85610; 85651; 85730; 86140; 87086; 93005; 93306; 96372; 96374; 99285; C9113; G0378; J1650